=== PATIENT | female | born 1935 | race Caucasian/White ===

== ENCOUNTER 2017-08-10 15:46 | Emergency (ER) | payer OTHER ==
[~2017-08-10] VITALS: Ht 157.5 cm; Wt 89.1 kg
[~2017-08-10 15:46] MED LIST: CARAFATE1 GM PO; STOOL SOFTENER100 MG PO; ZANTAC150 MG PO; ZOFRAN ODT8 MG PO
[2017-08-10 17:51] LABS: HEMOGLOBIN 12.4 G/DL (11.9-15.5); MCH 28.7 PG (29.0-34.0); MCHC 32.6 G/DL (30.0-36.0); PLATELET COUNT 205 K/uL (156-360); RBC DIS.WIDTH-SD 45.1 % (39-53); RED BLOOD COUNT 4.32 M/uL (3.80-5.20); WHITE BLOOD COUNT 5.9 K/uL (4.1-10.2)
[2017-08-10 17:59] LABS: CHLORIDE 107 mEq/L (99-109); POTASSIUM 4.2 mEq/L (3.7-5.4); SODIUM 144 mEq/L (136-147)
[2017-08-10 18:00] LABS: GLUCOSE 97 mg/dL (70-99)
[2017-08-10 18:01] LABS: PTT 30.9 SEC (25-37)
[2017-08-10 18:04] LABS: CREATININE 0.8 mg/dL (0.6-1.3); GFR ESTIMATE (CALCULATED) > 59 mL/min/
[2017-08-10 18:05] LABS: UREA NITROGEN (BUN) 15 mg/dL (9-23)
[2017-08-10] MEDS ORDERED: LASIX40 MG PO (21:04)
[2017-08-10 21:49] VITALS: BP 147/75
== END 2017-08-10 21:56 | disposition home or self-care (01) ==
LOC: EME 15:46
PROVIDERS: Emergency Medicine
DX: R60.0 Localized edema (principal); R42 Dizziness and giddiness; E78.5 Hyperlipidemia, unspecified; I10 Essential (primary) hypertension; Z87.891 Personal history of nicotine dependence
CPT/HCPCS: 71046; 80048; 85027; 85610; 85730; 93971; 99281; 99285